=== PATIENT | male | born 1980 | race Caucasian/White ===

== ENCOUNTER 2017-07-05 04:12 | Emergency (ER) | payer SELFPAY ==
[2017-07-05] MEDS ORDERED: Ondansetron 4 MG/2 ML SDV IVPUSH ONE (04:28)
[2017-07-05] MEDS ORDERED: HYDROmorphone 1 MG/ML Syringe IVPUSH ONE (04:28)
[2017-07-05] MEDS ORDERED: Ketorolac 30 MG/ML SDV IVPUSH ONE (04:28)
--- NOTE | 2017-07-05 04:35 | EDM.PDOC ---
ED HPI GENERAL MEDICAL PROBLEM - General Chief Complaint: Flank Pain Stated Complaint: LEFT SIDE PAIN Time Seen by Provider: 07/05/17 04:26 Source of Information: Reports: Patient, Family History Limitations: Reports: No Limitations - History of Present Illness INITIAL COMMENTS - FREE TEXT/NARRATIVE: This is a 37-year-old male. About 2 hours ago sudden onset of left flank pain radiating to her left lower quadrant with nausea and vomiting. He states that about 5 days ago or so he noted some blood in his urine but didn't think anything of it and wasn't having any particular pain. He has no history of having kidney stones he's had no fever no chills. He's had no recent infectious processes. He has no history of kidney stones in the past. Upon entering the room he is writhing on the bed complaining of left flank pain. He also states that it feels like someone is kicked him in the balls as the pain radiates from his left flank into his lower abdomen. Left Lower Flank Pain Score (Numeric/FACES): 10 - Related Data Allergies Allergy/AdvReac Type Severity Reaction Status Date / Time No Known Allergies Allergy Verified 07/05/17 04:20 Home Meds: Home Meds Ondansetron [Zofran] 4 mg PO Q6H PRN #6 tab 07/05/17 [Rx] oxyCODONE HCl/Acetaminophen [Percocet 5-325 mg Tablet] 1 each PO Q6H PRN #6 tablet 07/05/17 [Rx] Social & Family History - Tobacco Use Smoking Status *Q: Current Every Day Smoker Years of Tobacco use: 15 Packs/Tins Daily: 1 Used Tobacco, but Quit: No - Caffeine Use Caffeine Use: Reports: None - Recreational Drug Use Recreational Drug Use: Yes ED ROS GENERAL - Review of Systems Review Of Systems: See Below Constitutional: Denies: Fever, Chills HEENT: Reports: No Symptoms Respiratory: Reports: No Symptoms Cardiovascular: Reports: No Symptoms Endocrine: Reports: No Symptoms GI/Abdominal: Reports: Abdominal Pain, Nausea, Vomiting : Reports: Flank Pain, Hematuria, Pain Musculoskeletal: Reports: No Symptoms Skin: Reports: No Symptoms Neurological: Reports: No Symptoms Psychiatric: Reports: No Symptoms Hematologic/Lymphatic: Reports: No Symptoms ED EXAM, GI/ABD - Physical Exam Exam: See Below Exam Limited By: No Limitations General Appearance: Alert, WD/WN, Moderate Distress Eyes: Bilateral: Normal Appearance Ears: Normal External Exam Nose: Normal Inspection Throat/Mouth: Normal Inspection, Normal Lips, Normal Voice, No Airway Compromise Head: Normocephalic Neck: Supple Respiratory/Chest: No Respiratory Distress, Lungs Clear, Normal Breath Sounds Cardiovascular: Regular Rate, Rhythm, No Murmur, Tachycardia GI/Abdominal Exam: Soft, Other (He complains of left flank pain and left lower quadrant abdominal pain and palpation of those areas reveals some mild tenderness but not the severity that he has reacting to, he denies any right lower quadrant or right flank pain at this time) Back Exam: Full Range of Motion Extremities: Normal Inspection, Normal Range of Motion Neurological: Alert, Oriented Psychiatric: Anxious Skin Exam: Warm, Dry Course - Vital Signs Last Recorded V/S: Last Vital Signs Temp 96.8 F 07/05/17 04:15 Pulse 68 07/05/17 04:15 Resp 18 07/05/17 04:15 BP 154/97 H 07/05/17 04:15 Pulse Ox 100 07/05/17 04:15 - Orders/Labs/Meds Orders: Active Orders 24 hr Category Date Time Status Abdomen Pelvis wo Cont [CT] Stat Exams 07/05/17 04:32 Taken Labs: Laboratory Tests 07/05/17 07/05/17 07/05/17 Range/Units 04:30 04:30 05:35 WBC 9.88 H (4.23-9.07) K/mm3 RBC 5.16 (4.63-6.08) M/mm3 Hgb 15.2 (13.7-17.5) gm/L Hct 44.0 (40.1-51.0) % MCV 85.3 (79.0-92.2) fl MCH 29.5 (25.7-32.2) pg MCHC 34.5 (32.2-35.5) g/dl RDW Std Deviation 40.9 (35.1-43.9) fL Plt Count 255 (163-337) K/mm3 MPV 9.8 (9.4-12.3) fl Neut % (Auto) 75.3 H (34.0-67.9) % Lymph % (Auto) 17.0 L (21.8-53.1) % [place] % (Auto) 6.0 (5.3-12.2) % Eos % (Auto) 1.3 (0.8-7.0) Baso % (Auto) 0.2 (0.1-1.2) % Neut # (Auto) 7.44 H (1.78-5.38) K/mm3 Lymph # (Auto) 1.68 (1.32-3.57) K/mm3 [place] # (Auto) 0.59 (0.30-0.82) K/mm3 Eos # (Auto) 0.13 (0.04-0.54) K/mm3 Baso # (Auto) 0.02 (0.01-0.08) K/mm3 Sodium 141 (136-145) mEq/L Potassium 3.6 (3.5-5.1) mEq/L Chloride 104 (98-107) mEq/L Carbon Dioxide 24 (21-32) mEq/L Anion Gap 16.6 H (5-15) BUN 16 (7-18) mg/dL Creatinine 1.2 (0.7-1.3) mg/dL Est Cr Clr Drug Dosing 83.47 mL/min Estimated GFR (MDRD) > 60 (>60) mL/min BUN/Creatinine Ratio 13.3 L (14-18) Glucose 136 H (74-106) mg/dL Calcium 9.2 (8.5-10.1) mg/dL Total Bilirubin 1.2 H (0.2-1.0) mg/dL AST 19 (15-37) U/L ALT 25 (16-63) U/L Alkaline Phosphatase 42 L (46-116) U/L Total Protein 7.0 (6.4-8.2) g/dl Albumin 4.2 (3.4-5.0) g/dl Globulin 2.8 gm/dL Albumin/Globulin Ratio 1.5 (1-2) Urine Color Yellow (Yellow) Urine Appearance Slt cloudy H (Clear) Urine pH 6.5 (5.0-8.0) Ur Specific [place] 1.025 (1.005-1.030) Urine Protein 1+ H (Negative) Urine Glucose (UA) Negative (Negative) Urine Ketones Trace H (Negative) Urine Occult Blood 3+ H (Negative) Urine Nitrite Negative (Negative) Urine Bilirubin 1+ H (Negative) Urine Urobilinogen 1.0 (0.2-1.0) Ur Leukocyte Esterase Negative (Negative) Urine RBC 20-30 H (0-5) /hpf Urine WBC 0-5 (0-5) /hpf Ur Epithelial Cells Not seen (0-5) /hpf Calcium Oxalate Crystal Few H (NONE) Urine Bacteria Rare (FEW) /hpf Urine Mucus Moderate H (FEW) /hpf Meds: Medications Discontinued Medications Generic Name Dose Route Start Last Admin Trade Name Freq PRN Reason Stop Dose Admin Hydromorphone HCl 1 mg 07/05/17 04:28 07/05/17 04:33 Dilaudid IVPUSH 07/05/17 04:29 1 mg ONETIME ONE Administration Ketorolac Tromethamine 30 mg 07/05/17 04:28 07/05/17 04:37 Toradol IVPUSH 07/05/17 04:29 30 mg ONETIME ONE Administration Ondansetron HCl 4 mg 07/05/17 04:28 07/05/17 04:32 Zofran IVPUSH 07/05/17 04:29 4 mg ONETIME ONE Administration - Radiology Interpretation Free Text/Narrative:: CT scan of the abdomen without contrast shows mild hydronephrosis with a mild hydroureter on the left side C [place] evidence of a stone believe he passed a stone. He did have some mildly distended loops in the small bowel with fluid consistent with ileus but no obstruction. - Re-Assessments/Exams Free Text/Narrative Re-Assessment/Exam: 07/05/17 05:41 I spoke to the patient has significant other regarding the CT scan and blood work. 07/05/17 06:37 I spoke to the patient regarding his urinalysis and there is no infection. Departure - Departure Time of Disposition: 06:37 Disposition: Home, Self-Care 01 Condition: Good Clinical Impression: Kidney stone on left side, Ureteral colic Nausea & vomiting Qualifiers: Vomiting type: unspecified Vomiting Intractability: non-intractable Qualified Code(s): R11.2 - Nausea with vomiting, unspecified - Discharge Information Prescriptions: Ondansetron [Zofran] 4 mg PO Q6H PRN #6 tab PRN Reason: Nausea oxyCODONE HCl/Acetaminophen [Percocet 5-325 mg Tablet] 1 each PO Q6H PRN #6 tablet PRN Reason: Pain Instructions: Kidney Stones, [id number] Referrals: PCP,None [Primary Care Provider] - Forms: ED Department Discharge, ED Return to Work/School Form Additional Instructions: Be certain to drink lots of water and juices and avoid coffee tea and sodas, use the medicine as needed for nausea or pain but I believe that most of your pain is resolved since the CAT scan showed the stone has passed into your bladder and normally it does not hurt when in the bladder or even when you urinate it does not hurt when it comes out, strain your urine for the kidney stone and once you have it take it to your provider and they can analyze it to see what it's made of and give you a better idea of how to prevent them in the future, return to the ER if needed - My Orders Last 24 Hours: My Active Orders 07/05/17 04:32 Abdomen Pelvis wo Cont [CT] Stat - Assessment/Plan Last 24 Hours: My Active Orders 07/05/17 04:32 Abdomen Pelvis wo Cont [CT] Stat
--- NOTE | 2017-07-06 15:06 | CT ---
CT abdomen and pelvis Technique: Multiple axial sections were obtained from above the dome of the diaphragm inferiorly through the pubic symphysis. Intravenous and oral contrast was not utilized. Study has been performed as a ureteral stone protocol. Findings: Left ureter is dilated down to the bladder. No obstructing calculi are seen. Etiology for this finding is not seen. No abnormal calcifications are seen within the kidneys. Visualized lung bases show nothing acute. Noncontrast appearance of the liver and spleen appears within normal limits for the patient's age. Adrenal glands show no nodule. Noncontrast appearance of the pancreas appears grossly unremarkable. Aorta shows no aneurysmal dilatation. Gallbladder shows no calcified gallstones. No retroperitoneal adenopathy or mesenteric abnormalities are seen. Appendix is seen and appears within normal limits. Slightly prominent small bowel is seen containing fluid possibly due to ileus. No free fluid or inflammatory change is seen. Bone window settings were reviewed which show scattered Schmorl's node deformities and endplate deformities which appear to be developmental and chronic. Impression: 1. Dilated left ureter. Etiology not seen and please correlate if patient has symptoms of recently passed stone. 2. Mildly dilated small bowel loops most likely representing ileus. Diagnostic code #3 I agree with preliminary report issued by [employer] ([facility] report finalized on 07/05/17, 6:19 AM Central Time)
== END 2017-07-05 06:53 | disposition home or self-care (01) ==
LOC: JD.ED 04:12
DX: N20.2 Calculus of kidney with calculus of ureter (principal); F17.210 Nicotine dependence, cigarettes, uncomplicated
CPT/HCPCS: 36415; 74176; 80053; 81001; 85025; 96374; 96375; 99284; J1170; J1885; J2405

== ENCOUNTER 2021-05-07 20:00 | Emergency (ER) | payer OTHER, MEDICAID ==
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
[2021-05-07] MEDS ORDERED: Metoclopramide 10 MG Tab PO ONE (21:40)
[2021-05-07] MEDS ORDERED: Acetaminophen/oxyCODONE 325-5 MG Tab PO ONE (21:40)
[2021-05-07] MEDS ORDERED: Ibuprofen 600 MG Tab PO ONE (21:41)
[2021-05-07] MEDS ORDERED: Cefdinir 300 MG Cap PO ONE (21:45)
--- NOTE | 2021-05-08 06:47 | CR ---
Left shoulder: 3 views left shoulder were obtained. Comparison: No prior shoulder study is available. Mild acromioclavicular separation is seen. Glenohumeral joint is normal. No acute fracture or other bony abnormality is appreciated. Impression: 1. Mild acromioclavicular separation. 2. Left shoulder study is otherwise unremarkable. Diagnostic code #3
--- NOTE | 2021-05-08 06:48 | CT ---
Head CT Technique: Multiple axial sections through the brain were obtained. Intravenous contrast was not utilized. Reconstructed coronal and sagittal images were obtained. Comparison: No prior intracranial imaging is available. Findings: Ventricles along with basal cisterns and sulci over the convexities are within normal limits for the patient's age. No abnormal parenchymal densities are seen. No evidence of intracranial hemorrhage is seen. No midline shift or mass-effect is seen. Bone window settings were reviewed. Visualized mastoid sinuses and paranasal sinuses show nothing acute. No acute calvarial abnormality is appreciated. Impression: 1. Nothing acute is seen on noncontrast head CT study. Diagnostic code #1 I agree with preliminary report from [facility] finalized on 05/07/21, 10:13 PM CDT, code 1
--- NOTE | 2021-05-08 06:50 | CT ---
CT cervical spine Technique: Multiple axial sections were obtained from above C1 inferiorly through the T1-2 disc. Reconstructed coronal and sagittal images were obtained. Comparison: No prior intracranial imaging is available. Findings: Fairly severe disc space narrowing is noted at C5-6 with anterior osteophytes and mild posterior ridging. Other disc spaces are fairly well preserved. No bony central or neural foraminal stenosis is seen. Degenerative spurring is seen within the uncovertebral joints at C5-6 which is most prominent on the right side. No acute fracture or abnormal subluxation is seen. Minimal mucosal thickening is seen within the inferior sphenoid sinus which is likely chronic. Impression: 1. Degenerative change at C5-6. 2. Slight sinus findings believed to be chronic. 3. No acute abnormality is seen on CT study of the cervical spine. Diagnostic code #2 I agree with preliminary report from [facility] finalized on 05/07/21, 10:18 PM CDT, code 1
== END 2021-05-07 22:23 | disposition home or self-care (01) ==
LOC: JD.ED 20:00
DX: S43.102A Unspecified dislocation of left acromioclavicular joint, initial encounter (principal); S13.4XXA Sprain of ligaments of cervical spine, initial encounter; S00.03XA Contusion of scalp, initial encounter; Z72.0 Tobacco use; V29.9XXA Motorcycle rider (driver) (passenger) injured in unspecified traffic accident, initial encounter; Y92.410 Unspecified street and highway as the place of occurrence of the external cause; Y93.55 Activity, bike riding
CPT/HCPCS: 70450; 72125; 73030; 99284; A9270